=== PATIENT | female | born 1995 | race African-American/Black ===

== ENCOUNTER 2017-03-30 00:16 | Emergency (ER) | payer OTHER ==
[~2017-03-30] VITALS: Ht 170.2 cm; Wt 75.1 kg
[~2017-03-30 00:16] MED LIST: ENDOCET 5-3251 EACH PO; FERROUS SULFAT325 MG PO; IBUPROFEN600 MG PO; IBUPROFEN800 MG PO
[2017-03-30 01:00] LABS: CHLORIDE 104 mEq/L (99-109); POTASSIUM 3.5 mEq/L (3.7-5.4); SODIUM 138 mEq/L (136-147)
[2017-03-30 01:02] LABS: GLUCOSE 111 mg/dL (70-99)
[2017-03-30 01:03] LABS: ANION GAP 9 MEQ/L (2-14); HEMATOCRIT 39.9 % (36.0-46.0); MCH 21.4 PG (29.0-34.0); MCHC 29.8 G/DL (30.0-36.0); MCV 71.8 FL (83-99); MEAN PLAT.VOLUME 11.8 uM^3 (9.5-12.4); PLATELET COUNT 164 K/uL (156-360); RBC DIS.WIDTH-CV 14.3 % (11.8-14.6); RBC DIS.WIDTH-SD 36.6 % (39-53); RED BLOOD COUNT 5.56 M/uL (3.80-5.20); WHITE BLOOD COUNT 6.5 K/uL (4.1-10.2)
[2017-03-30 01:04] LABS: TOTAL BILIRUBIN 0.3 mg/dL (0.0-1.0)
[2017-03-30 01:06] LABS: ALKALINE PHOSPHATASE 83 IU/L (3-129); GFR ESTIMATE (CALCULATED) > 59 mL/min/
[2017-03-30 01:07] LABS: UREA NITROGEN (BUN) 15 mg/dL (9-23)
[2017-03-30 01:18] LABS: QUANTITATIVE HCG < 4.0 MIU/ML
[2017-03-30 01:31] LABS: ADD MIUA? NO; BILIRUBIN NEGATIVE; BLOOD NEGATIVE; COLOR YELLOW ((YELLOW)); GLUCOSE (STRIP) NEGATIVE; KETONES NEGATIVE; LEUKOCYTES NEGATIVE; NITRITE NEGATIVE; PROTEIN (STRIP) NEGATIVE; SPECIFIC GRAVITY 1.026 (1.000-1.030); UCUL ADDED? NO; UROBILINOGEN 0.2 MG/DL (0.2-1.0)
[2017-03-30] MEDS ORDERED: TORADOL10 MG PO (03:21)
[2017-03-30 03:38] VITALS: BP 109/53
== END 2017-03-30 03:42 | disposition home or self-care (01) ==
LOC: EME 00:16
PROVIDERS: Physician Assistant
DX: R10.31 Right lower quadrant pain (principal); R11.0 Nausea
CPT/HCPCS: 74177; 80053; 81003; 84702; 85027; 99281; 99284; J1885

== ENCOUNTER 2017-12-23 01:10 | Emergency (ER) | payer OTHER ==
[~2017-12-23] VITALS: Ht 170.2 cm; Wt 82.2 kg
[~2017-12-23 01:10] MED LIST changes: +TORADOL10 MG PO
[2017-12-23 01:31] LABS: APPEARANCE SL.HAZY ((CLEAR)); BILIRUBIN NEGATIVE; BLOOD NEGATIVE; COLOR YELLOW ((YELLOW)); GLUCOSE (STRIP) NEGATIVE; KETONES NEGATIVE; LEUKOCYTES TRACE; NITRITE NEGATIVE; PROTEIN (STRIP) 30; SPECIFIC GRAVITY 1.028 (1.000-1.030); UROBILINOGEN 0.2 MG/DL (0.2-1.0)
[2017-12-23 01:36] LABS: HEMATOCRIT 35.6 % (36.0-46.0); HEMOGLOBIN 11.3 G/DL (11.9-15.5); MCH 22.2 PG (29.0-34.0); MCHC 31.7 G/DL (30.0-36.0); MCV 69.9 FL (83-99); PLATELET COUNT 203 K/uL (156-360); RBC DIS.WIDTH-CV 14.7 % (11.8-14.6); RBC DIS.WIDTH-SD 36.7 % (39-53); RED BLOOD COUNT 5.09 M/uL (3.80-5.20)
[2017-12-23 01:37] LABS: BACTERIA RARE /HPF; EPITHELIAL CELLS 2+ /HPF; MUCUS TRACE /LPF; RED BLOOD CELLS 0-5 /HPF (0-5); UCUL ADDED? NO; WHITE BLOOD CELLS 0-5 /HPF (0-5)
[2017-12-23] MEDS ORDERED: POLYTRIM EYE DR10 ML RIGHT EYE (05:37)
[2017-12-23 06:20] VITALS: BP 105/63
== END 2017-12-23 06:22 | disposition home or self-care (01) ==
LOC: EME 01:10
DX: O9A.211 Injury, poisoning and certain other consequences of external causes complicating pregnancy, first trimester (principal); S05.01XA Injury of conjunctiva and corneal abrasion without foreign body, right eye, initial encounter; S00.11XA Contusion of right eyelid and periocular area, initial encounter; M79.601 Pain in right arm; W50.0XXA Accidental hit or strike by another person, initial encounter; Z3A.11 11 weeks gestation of pregnancy
CPT/HCPCS: 76801; 81003; 84702; 85027; 99281; 99284

== ENCOUNTER 2018-03-22 02:12 | Emergency (ER) | payer OTHER ==
[~2018-03-22] VITALS: Ht 170.2 cm; Wt 87.8 kg
[~2018-03-22 02:12] MED LIST changes: +POLYTRIM EYE DR10 ML RIGHT EYE
[2018-03-22 03:41] VITALS: BP 112/62
== END 2018-03-22 03:41 | disposition home or self-care (01) ==
LOC: EME 02:12
DX: O99.612 Diseases of the digestive system complicating pregnancy, second trimester (principal); K59.00 Constipation, unspecified; Z3A.24 24 weeks gestation of pregnancy; Z91.018 Allergy to other foods
CPT/HCPCS: 80053; 81003; 83605; 83690; 85027; 99281; 99284